=== PATIENT | female | born 1975 | race Hispanic/Latino ===

== ENCOUNTER → 2019-05-26 | Outpatient (CLI) | payer BC | END | disposition home or self-care (01) | LOC: RAH 11:14 | PROVIDERS: ATTEND Internal Medicine | DX: Z12.31 Encounter for screening mammogram for malignant neoplasm of breast (principal) | CPT/HCPCS: 77067 ==

== ENCOUNTER → 2023-02-05 | Outpatient (CLI) | payer BC | END | disposition home or self-care (01) | LOC: RAH 14:28 | PROVIDERS: ATTEND Internal Medicine | DX: Z12.31 Encounter for screening mammogram for malignant neoplasm of breast (principal) | CPT/HCPCS: 77067 ==

== ENCOUNTER 2024-04-10 21:21 | Emergency (ER) | payer BC ==
[~2024-04-10] VITALS: Ht 147.3 cm; Wt 81.6 kg
[2024-04-10 22:09] LABS: BASOPHILS # (AUTO) 0.03 K/uL (0.00-0.20); BASOPHILS % (AUTO) 0.3 % (0.0-5.0); EOSINOPHILS # (AUTO) 0.02 K/uL (0.00-0.70); EOSINOPHILS % (AUTO) 0.2 % (0.0-8.0); HEMATOCRIT 35.6 % (36-48); IMMATURE GRANULOCYTE ABSOLUTE 0.07 K/uL (0-1); LYMPHOCYTES # (AUTO) 0.7 K/uL (1.0-4.8); LYMPHOCYTES % (AUTO) 6.4 % (21.0-51.0); MEAN CORPUSCULAR HEMOGLOBIN 30.2 pg (27.0-33.0); MEAN CORPUSCULAR VOLUME 88.8 fL (79-99); MONOCYTES # (AUTO) 0.8 K/uL (0.1-1.0); MONOCYTES % (AUTO) 7.4 % (3.0-13.0); NEUTROPHILS # (AUTO) 9.2 K/uL (1.8-7.7); PLATELET COUNT (AUTO) 290 K/uL (130-400); RED BLOOD CELL COUNT(AUTO) 4.01 MIL/uL (4.00-5.50); RED CELL DISTRIBUTION WIDTH 13.2 % (11.0-15.5); WHITE BLOOD COUNT (AUTO) 10.8 K/uL (4.8-10.8)
[2024-04-10] MEDS: 0.9%NACL 1000ML 1,000 ML IV ONE (22:09)
[2024-04-10 22:12] LABS: ADD UA MICROSCOPIC YES; APPEARANCE,URINE CLOUDY (CLEAR); BILIRUBIN,URINE NEGATIVE (NEGATIVE); COLOR,URINE LIGHT-YELLOW (YELLOW); GLUCOSE, URINE (UA) NEGATIVE (NEGATIVE); KETONES,URINE 5 mg/dL (NEGATIVE); LEUKOCYTE ESTERASE ,URINE 500 Leu/uL (NEGATIVE); NITRATE,URINE NEGATIVE (NEGATIVE); OCCULT BLOOD,URINE SMALL (NEGATIVE); PROTEIN,URINE 30 mg/dL (NEGATIVE); UROBILINOGEN,URINE 0.2 mg/dL (0.2-1.0)
[2024-04-10 22:17] LABS: BACTERIA,URINE RARE /HPF (None Seen); MUCUS,URINE RARE LPF (None Seen); WBC CLUMP FEW /HPF (0-1); WBC,URINE TNTC /HPF (0-1)
[2024-04-10 22:18] LABS: CREATININE 0.5 mg/dL (0.5-1.0); POTASSIUM 3.3 mmol/L (3.5-5.1)
[2024-04-10 22:23] LABS: ALBUMIN 3.3 g/dL (3.5-5.0); BILIRUBIN,TOTAL 1.7 mg/dL (0.2-1.0); TOTAL PROTEIN, SERUM 7.4 g/dL (6.0-8.3)
[2024-04-10 22:31] LABS: WBC MORPHOLOGY CONSISTENT W/DIFF
[2024-04-10 22:40] VITALS: BP 128/58; PULSE 109; RESP 20; O2SAT 95
[2024-04-10] MEDS: CEFTRIAXONE 1G VIAL IV ONE (22:47)
[2024-04-10] MEDS: POTASSIUM BICARB/CIT AC 25 MEQ TABLET.EFF PO ONE (22:47)
[2024-04-10] MEDS ORDERED: AMOX1TAB16 PO (22:49)
[2024-04-10] MEDS ORDERED: IBUP-2077 PO (22:49)
== END 2024-04-10 22:54 | disposition home or self-care (01) ==
LOC: EDH 21:21
DX: N30.01 Acute cystitis with hematuria (principal); E87.6 Hypokalemia; E11.65 Type 2 diabetes mellitus with hyperglycemia; Z20.822 Contact with and (suspected) exposure to COVID-19
CPT/HCPCS: 99284; 96374; 87426; 80053; 85025; 87040 ×2; 87077; 87088; 87186; 83605; 81001; 36415; J7030; J0696

== ENCOUNTER 2024-07-18 12:25 | Emergency (ER) | payer BC ==
[~2024-07-18] VITALS: Ht 149.9 cm; Wt 78.5 kg
[~2024-07-18 12:25] MED LIST: AMOX1TAB16 PO; IBUP-2077 PO
[2024-07-18] MEDS: ONDANSETRON 4MG INJ IVP ONE (13:00)
[2024-07-18 13:17] LABS: APPEARANCE,URINE CLOUDY (CLEAR); BILIRUBIN,URINE NEGATIVE (NEGATIVE); COLOR,URINE LIGHT-YELLOW (YELLOW); GLUCOSE, URINE (UA) NEGATIVE (NEGATIVE); KETONES,URINE NEGATIVE (NEGATIVE); LEUKOCYTE ESTERASE ,URINE 500 Leu/uL (NEGATIVE); NITRATE,URINE NEGATIVE (NEGATIVE); PH,URINE 7.5 (5.0-8.0); PROTEIN,URINE NEGATIVE (NEGATIVE); UROBILINOGEN,URINE 0.2 mg/dL (0.2-1.0)
[2024-07-18 13:18] LABS: ADD UA MICROSCOPIC YES
[2024-07-18 13:20] LABS: BACTERIA,URINE MOD /HPF (None Seen); MUCUS,URINE RARE LPF (None Seen); SQUAMOUS EPITHELIAL CELL,UR RARE /HPF (0-2); WBC,URINE 26-50 /HPF (0-1); YEAST,URINE BUDDING FEW /HPF (None Seen)
[2024-07-18 13:29] LABS: CREATININE 0.4 mg/dL (0.5-1.0); POTASSIUM 3.3 mmol/L (3.5-5.1)
[2024-07-18 13:32] LABS: BASOPHILS # (AUTO) 0.05 K/uL (0.00-0.20); BASOPHILS % (AUTO) 0.7 % (0.0-5.0); EOSINOPHILS # (AUTO) 0.26 K/uL (0.00-0.70); EOSINOPHILS % (AUTO) 3.8 % (0.0-8.0); HEMATOCRIT 38.5 % (36-48); IMMATURE GRANULOCYTE ABSOLUTE 0.03 K/uL (0-1); LYMPHOCYTES # (AUTO) 1.8 K/uL (1.0-4.8); LYMPHOCYTES % (AUTO) 26.6 % (21.0-51.0); MEAN CORPUSCULAR HEMOGLOBIN 29.3 pg (27.0-33.0); MEAN CORPUSCULAR HGB CONC 33.8 g/dL (32.0-36.0); MEAN CORPUSCULAR VOLUME 86.7 fL (79-99); MONOCYTES # (AUTO) 0.3 K/uL (0.1-1.0); MONOCYTES % (AUTO) 4.5 % (3.0-13.0); NEUTROPHILS # (AUTO) 4.4 K/uL (1.8-7.7); PLATELET COUNT (AUTO) 397 K/uL (130-400); RED BLOOD CELL COUNT(AUTO) 4.44 MIL/uL (4.00-5.50); RED CELL DISTRIBUTION WIDTH 13.5 % (11.0-15.5); WHITE BLOOD COUNT (AUTO) 6.8 K/uL (4.8-10.8)
[2024-07-18 13:35] LABS: ALBUMIN 3.9 g/dL (3.5-5.0); BILIRUBIN,TOTAL 0.6 mg/dL (0.2-1.0); TOTAL PROTEIN, SERUM 8.2 g/dL (6.0-8.3)
[2024-07-18] MEDS: LIDOCAINE HCL 2% VISCOUS 15 ML UDCUP PO ONE (14:03)
[2024-07-18] MEDS: DICYCLOMINE HCL 10 MG/5 ML ML PO ONE (14:03)
[2024-07-18] MEDS: MAG/ALUM/SIMETH 30 ML UDCUP PO ONE (14:03)
[2024-07-18] MEDS: cefTRIAXone 1G VIAL IVPB ONE (14:22)
[2024-07-18] MEDS ORDERED: FAMO-136 PO (14:53)
[2024-07-18] MEDS ORDERED: ONDA-243 PO (14:53)
[2024-07-18] MEDS ORDERED: CEPH500B PO (14:53)
[2024-07-18] MEDS: POTASSIUM BICARB/CIT AC 25 MEQ TABLET.EFF PO STA (15:01)
[2024-07-18 15:22] VITALS: BP 131/74; PULSE 74; RESP 14; O2SAT 100
== END 2024-07-18 15:27 | disposition home or self-care (01) ==
LOC: EDH 12:25
DX: R10.13 Epigastric pain (principal); E87.6 Hypokalemia; N39.0 Urinary tract infection, site not specified; E11.9 Type 2 diabetes mellitus without complications; I10 Essential (primary) hypertension; Z90.49 Acquired absence of other specified parts of digestive tract; Z98.890 Other specified postprocedural states; Z79.2 Long term (current) use of antibiotics; Z79.899 Other long term (current) drug therapy
CPT/HCPCS: 99284; 96365; 71045; 96375; 80053; 83690; 85025; 87086 ×2; 87186; 81001; 36415; 93005; J0696; J2405

== ENCOUNTER → 2025-03-10 | Outpatient (CLI) | payer BC ==
[~2025-03-10] MED LIST changes: -AMOX1TAB16 PO; -IBUP-2077 PO; +LOSA50TA64 PO; +METF-444 PO; +OMEP40CA21 PO; +ROSU40TA88 PO
--- NOTE | 2025-03-12 10:26 | HMCIMG ---
PROCEDURE: MAMMO DX BILATERAL, US BREAST COMPLETE UNILATERAL HISTORY: Left breast lump COMPARISON: 02/05/2023 TECHNIQUE: Bilateral digital diagnostic mammogram with CAD was performed. No additional views were obtained. FINDINGS: There are scattered areas of fibroglandular density. Oval-shaped complex structure is again seen in the retroareolar region of left breast. Ultrasound shows well-circumscribed complex echogenic mass at 1:00 in this area measuring 5.3 x 1.8 x 5 cm unchanged. No other cystic or hypoechoic mass is seen of the ultrasound study. There is left axillary lymph node measuring 2.2 x 1.4 cm. There is no evidence of a dominant mass, or suspicious microcalcification. There is no evidence of nipple retraction or skin thickening. IMPRESSION: 1. Oval-shaped complex structure is again seen in the retroareolar region of left breast mammogram. Ultrasound shows well-circumscribed complex echogenic mass at 1:00 in this area measuring 5.3 x 1.8 x 5 cm unchanged. Stable mammogram BI-RADS: CATEGORY 2: BENIGN FINDINGS Recommend monthly self breast exam as well as annual clinical examination. A negative x-ray should not delay biopsy if a dominant or clinically suspicious mass is present, since 8-10% of cancers are not identified by mammography. Dense breasts particularly, may obscure an underlying neoplasm. Some of these may be detected clinically and therefore, clinical examination is an essential part of breast evaluation.
== END | disposition home or self-care (01) ==
LOC: RAH 09:36
PROVIDERS: ATTEND Internal Medicine
DX: N63.21 Unspecified lump in the left breast, upper outer quadrant (principal); R92.2 Inconclusive mammogram
CPT/HCPCS: 76641; 77066

== ENCOUNTER → 2025-04-14 | Outpatient (CLI) | payer BC ==
--- NOTE | 2025-04-14 12:23 | HMCIMG ---
TOMOGRAM REASON: CALCULUS OF KIDNEY. COMPARISON: None TECHNIQUE: Tomogram of the kidneys were obtained. FINDINGS: There is 9.9 mm renal stone in the left renal pelvis. Right percutaneous nephrostomy tube is seen. Post cholecystectomy changes are seen. Postop changes are seen of the lower lumbar spine. IMPRESSION: Findings as described above.
--- NOTE | 2025-04-14 12:25 | HMCIMG ---
ABD 1VW HISTORY: Renal stone COMPARISON: None FINDINGS: A frontal projection of the abdomen was obtained. A nonspecific bowel gas pattern is seen. Fecal material is seen in the colon. Left renal pelvic stone is seen. Postop changes are seen all lumbar spine. Multiple phleboliths are seen in the pelvis bilaterally. Right percutaneous nephrostomy tube is seen. Post cholecystectomy changes are seen Degenerative changes of the thoracolumbar spine are noted. IMPRESSION: 1. A nonspecific bowel gas pattern is seen. Left renal pelvic stone.
== END | disposition home or self-care (01) ==
LOC: RAH 09:44
PROVIDERS: ATTEND Urology
DX: N20.0 Calculus of kidney (principal); R19.5 Other fecal abnormalities; I87.8 Other specified disorders of veins; M47.815 Spondylosis without myelopathy or radiculopathy, thoracolumbar region; Z90.49 Acquired absence of other specified parts of digestive tract; Z98.890 Other specified postprocedural states
CPT/HCPCS: 74018; 76100

== ENCOUNTER → 2025-05-14 | Outpatient (CLI) | payer BC ==
--- NOTE | 2025-05-14 12:07 | HMCIMG ---
TOMOGRAM REASON: CALCULUS OF KIDNEY. COMPARISON: 04/14/2025 TECHNIQUE: 6 tomogram images of the kidneys were obtained. FINDINGS: Postcholecystectomy changes are seen. There is 8.4 mm left renal pelvic stone. IMPRESSION: Left renal pelvic stone.
--- NOTE | 2025-05-14 12:08 | HMCIMG ---
ABD 1VW HISTORY: Renal stone COMPARISON: None FINDINGS: A frontal projection of the abdomen was obtained. A nonspecific bowel gas pattern is seen. Fecal material is seen in the colon. Top changes are seen of the lower lumbar spine. Postcholecystectomy changes are seen. Left midpole renal stone is seen. Degenerative changes of the thoracolumbar spine are noted. IMPRESSION: 1. A nonspecific bowel gas pattern is seen.
== END | disposition home or self-care (01) ==
LOC: RAH 11:16
PROVIDERS: ATTEND Urology
DX: N20.0 Calculus of kidney (principal); M47.815 Spondylosis without myelopathy or radiculopathy, thoracolumbar region; Z90.49 Acquired absence of other specified parts of digestive tract
CPT/HCPCS: 74018; 76100